=== PATIENT | female | born 1935 | race Caucasian/White ===

== ENCOUNTER → 2017-02-15 | Outpatient (CLI) | payer OTHER ==
[~2017-02-15] VITALS: Ht 167.6 cm; Wt 72.6 kg
[~2017-02-15] MED LIST: ASPIR 8181 MG PO; CALCIUM CITRAT250 MG PO; CENTRUM SILVER1 EAC4 PO; ENALAPRIL MALEAT5 M1 PO; FISH OIL 1,001000 M2 PO; GYNODIOL0.5 MG PO; LEVOTHYROXIN0.112 M1 PO; PENTASA500 MG PO; VITAMIN B-121000 MCG PO; VITAMIN D1000 UNI1 PO
--- NOTE | ~2017-02-15 | P ---
[facility] [place] [address] PROCEDURE REPORT Name: EMELY DWYER Room #: REG [facility]#: [id number] Admission: 02/15/17 Attend Phys: Karlo Ledesma MD Discharge: Date of : 39 Report #: [id number] THIS REPORT FOR: //name// CC: Karlo Gan MD PREOPERATIVE DIAGNOSES: 1. Iron deficiency anemia. 2. Crohn's disease. POSTOPERATIVE DIAGNOSES: 1. Moderate diffuse gastritis. 2. Moderately large hiatus hernia. 3. Dysphagia. MEDICATIONS: Deep sedation with propofol per anesthesia. SPECIMEN: 1. Small bowel biopsies. 2. Biopsies of gastritis. ESTIMATED BLOOD LOSS: 3 mL. PROCEDURE: EGD with biopsy and Hamilton dilation. FINDINGS: Prior to propofol sedation, procedure of upper endoscopy was discussed with the patient as well as potential risks and its complications. She indicates she understands and desires to proceed. DESCRIPTION OF PROCEDURE: With the patient in left lateral decubitus position, the Fuji video endoscope was inserted in the cervical esophagus under direct vision without difficulty. Examination of this organ through its entire length revealed normal esophageal mucosa down the squamocolumnar junction. The squamocolumnar junction was inspected and noted to be intact and unremarkable. There is no evidence of esophagitis or Oliveira mucosa, strictures or masses. A definite ring was not seen. There was some tortuosity at the distal esophagus, likely related to the hiatus hernia. The hiatus hernia was 45 cm in length. The mucosa and hernia was unremarkable. The scope was advanced in the hernia into the distal stomach, was examined on end view as well as retroflexed views. There was a pattern of moderate erythema throughout the antrum of stomach. No ulcers or erosions were seen. Bleeding lesions were not seen. Upon retroflexion, no abnormalities were seen. Other than erythema, no abnormalities were seen. The pylorus was normal. Duodenal bulb was normal. Postbulbar duodenal sweep was normal down to the third portion. At that point, the scope was slowly withdrawn and careful circumferential views confirmed the above findings. The patient tolerated the procedure well. [facility] [address] [place] [address] PROCEDURE REPORT Name: EMELY DWYER Room #: REG [facility] Reji.#: [id number] Admission: 02/15/17 Attend Phys: Karlo Ledesma MD Discharge: Date of : 39 Report #: [id number] Subsequently, she was dilated with passage of 50-Spanish Hamilton dilator. There was no resistance. CONDITION OF THE PATIENT UPON DISCHARGE: Following procedure, the patient drowsy ____ colonoscopy. INSTRUCTIONS TO THE PATIENT AND FAMILY AT THE TIME OF DISCHARGE: As for iron deficiency anemia, I do not see any obvious bleeding lesions. We will follow up on biopsies obtained today specifically with regards to celiac disease of the small bowel. I did not see definite stricturing. She does have hiatus hernia. She was dilated as noted above due to symptoms of dysphagia. She is to return as needed for dilation based on symptoms of dysphagia. Proceed with colonoscopy at this time. <ELECTRONICALLY SIGNED> By: Karlo Ledesma MD 02/16/17 1547 [id number] Karlo Ledesma MD /nt
--- NOTE | ~2017-02-15 | P ---
[facility] [place] [place] [address] PROCEDURE REPORT Name: EMELY DWYER Room #: REG [facility].#: [id number] Admission: 02/15/17 Attend Phys: Karlo Ledesma MD Discharge: Date of : 39 Report #: [id number] THIS REPORT FOR: //name// CC: Karlo Gan MD PREOPERATIVE DIAGNOSES: Crohn's disease with recent findings of iron deficiency anemia. POSTOPERATIVE DIAGNOSES: 1. 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 2. Moderate diverticulosis coli. MEDICATIONS: Deep sedation with propofol per anesthesia. SPECIMEN: Biopsies of ileocolonic anastomosis. ESTIMATED BLOOD LOSS: 3 mL. PROCEDURE: Colonoscopy to ileocolonic anastomosis with biopsy. FINDINGS: Prior to propofol sedation, procedure of colonoscopy discussed with the patient as well as potential risks, benefits, and complications. She indicates she understands and desires to proceed. With the patient in left lateral decubitus position, digital examination was completed, which revealed no abnormalities. There was no evidence perianal disease. Subsequently, the RemCare video colonoscope was introduced into the rectum, advanced under direct vision into the proximal colon. She had somewhat of a tortuous redundant colon, but the ileocolonic anastomosis was identified. There was modest narrowing and this had been noted on her last colonoscopy in 2004. However, the scope passed easily across the ileocolonic anastomosis. Mostly on the ileal site of the anastomosis, the very distal segment of about 2-3 cm was diffusely ulcerated. No mass lesions were seen. More proximally, the ileum mucosa was within normal limits. Multiple biopsies were obtained of the ulcerated ileocolonic anastomosis. At that point, the scope was slowly withdrawn and careful circumferential views confirmed above finding. As we withdrew the scope, no mucosal abnormalities were seen until the sigmoid colon was reached at which point she was found to have diverticulosis without evidence of diverticulitis. Scope was withdrawn in the rectum. Upon retroflexion, no abnormalities were seen. No polyps were seen on today's exam. Scope was withdrawn. The patient tolerated the procedure well. CONDITION OF THE PATIENT UPON DISCHARGE: Following procedure, the patient drowsy and arousable. She will be discharged home when fully ambulatory. [address] [address] PROCEDURE REPORT Name: EMELY DWYER Room #: REG [facility]#: [id number] Admission: 02/15/17 Attend Phys: Karlo Ledesma MD Discharge: Date of : 39 Report #: [id number] INSTRUCTIONS TO THE PATIENT AND FAMILY AT THE TIME OF DISCHARGE: No neoplastic lesions were seen. She had an ulcerated ileocolonic anastomosis as described. Overall, she has done very well, it has been about 10 years since I have seen her. The findings are similar to her last colonoscopy, which revealed ulceration of the ileocolonic anastomosis. Suggest a course of Entocort 9 mg daily for 8 weeks. However, she should return to see me in followup in the office in several months. Consider followup evaluation such as a stool for calprotectin in view of the fact that she has an active disease at this time. We will obtain labs from primary for review. Again, she should see me in followup in about 3 months or so to monitor progress. In addition, we will have her start iron. She is on B12. She may benefit more from an injection or nasal spray due to her Crohn's disease. <ELECTRONICALLY SIGNED> By: Karlo Ledesma MD 02/16/17 1547 [id number] Karlo Ledesma MD /nt
--- NOTE | ~2017-02-15 | S ---
[facility] [address] [place] [address] SURGICAL PATH RPT PROCEDURE Name: EMELY DWYER Room #: REG [facility]#: [id number] Admission: 02/15/17 Date of : 39 Discharge: Report #: [id number] Path Case #: [id number] PATHOLOGY REPORT DRAFT COLLECTION DATE: 02/15/2017 RECEIVED DATE: 02/15/2017 SPECIMEN(S) RECEIVED: A.Bx of small bowel B.Bx of gastritis C.Bx of ulcer of ileo colonic anastomosis
== END | disposition home or self-care (01) ==
LOC: GI
DX: K50.90 Crohn's disease, unspecified, without complications (principal); K57.30 Diverticulosis of large intestine without perforation or abscess without bleeding; K29.70 Gastritis, unspecified, without bleeding; I10 Essential (primary) hypertension; M19.90 Unspecified osteoarthritis, unspecified site; E03.9 Hypothyroidism, unspecified; K44.9 Diaphragmatic hernia without obstruction or gangrene; D64.9 Anemia, unspecified; Z85.51 Personal history of malignant neoplasm of bladder; Z90.710 Acquired absence of both cervix and uterus; Z98.0 Intestinal bypass and anastomosis status; Z87.891 Personal history of nicotine dependence; Z98.890 Other specified postprocedural states; Z88.0 Allergy status to penicillin; Z88.2 Allergy status to sulfonamides; Z79.899 Other long term (current) drug therapy; Z79.82 Long term (current) use of aspirin; Z88.8 Allergy status to other drugs, medicaments and biological substances
CPT/HCPCS: 62110; 62900